=== PATIENT | male | born 1975 | race Caucasian/White ===

== ENCOUNTER 2018-03-23 01:59 | Emergency (ER) | payer SELFPAY ==
[~2018-03-23] VITALS: Ht 165.1 cm; Wt 102.5 kg
[2018-03-23 02:08] VITALS: Ht 165.1 cm; Wt 102.5 kg
[2018-03-23 02:48] VITALS: BP 134/92
== END 2018-03-23 02:48 | disposition home or self-care (01) ==
LOC: ED 01:59
DX: F41.0 Panic disorder [episodic paroxysmal anxiety] (principal); R06.00 Dyspnea, unspecified

== ENCOUNTER 2019-03-04 04:08 | Emergency (ER) | payer BC ==
[~2019-03-04] VITALS: Ht 167.6 cm; Wt 105.2 kg
[2019-03-04 04:13] VITALS: BP 130/86; Ht 167.6 cm; Wt 105.2 kg
== END 2019-03-04 05:52 | disposition home or self-care (01) ==
LOC: ED 04:08
DX: R21 Rash and other nonspecific skin eruption (principal)